=== PATIENT | female | born 1985 | race Caucasian/White ===

== ENCOUNTER 2022-06-19 09:04 | Day surgery (SDC) | payer OTHER, SELFPAY ==
[2022-06-16 11:36] VITALS: BMI 28.8
--- NOTE | 2022-06-19 08:17 | W.PM.OPSFHP ---
Same Day Surgery H&P Indication for Procedure/HPI DATE OF PROCEDURE: June 19, 2022 CHIEF COMPLAINT/INDICATIONFOR SURGICAL PROCEDURE: POst prandial pain and bloating PREOP DIAGNOSIS: Post prandial pain and bloating PLANNED PROCEDURE: Operation Date: 06/19/22 10:30 Proposed Procedures p Colonoscopy 92296,R14.0(Not Applicable) - Esteban Dimas MD Medications/Allergies* Home Medications Medication Instructions Recorded Confirmed Type No Known Home Medications 06/13/22 06/16/22 History Allergies/Adverse Reactions Allergy/AdvReac Type Severity Reaction Status Date / Time cephalexin [From Keflex] Allergy Unknown Verified 06/16/22 11:34 grass pollen Allergy Unknown Verified 06/15/22 13:40 meperidine Allergy Unknown Verified 06/15/22 13:40 Pertinent History/Comorbid Conditions* Family History (Updated 06/13/22 @ 10:46 by Natalie Best LPN) Father Diabetes Father Mental disability Father Cancer Mother Social History Smoking and tobacco status: current every day smoker Second hand smoke exposure: Yes Smoking risk assessment/counseling performed?: No Alcohol intake: never Desire information about alcohol rehabilitation?: No Counseling given: No Desire information about substance/drug rehabilitation?: No Counseling given: No Adopted: No Caregiver/support person: No Lives independently: Yes Household members: spouse Housing: House Marital status: Pertinent Exam Findings alert, oriented x 3, clear to auscultation bilaterally, regular rate & rhythm, operative site marked and procedure specific exam findings Recommendations Surgery/Procedure today Coding Level of Care Code Acute Occupational Health Specialist for Ben Quach
[2022-06-19 09:39] VITALS: BP 117/107; PULSE 90; RESP 18; TEMP 36.6; O2SAT 99
--- NOTE | 2022-06-19 09:44 | ANES.PREANE2 ---
Pre-Anesthetic Assessment Height/Weight: Height 1.65 m Weight 78.471 kg Preop Diagnosis: rectal pain. Post prandial abdominal pain. Operation Date: 06/19/22 10:30 Proposed Procedures p Colonoscopy 77827,R14.0(Not Applicable) - Esteban Dimas MD Familial anesthetic complications: NOne Was Beta Alia taken within 24 hours: N/A Was Clonidine taken within 24 hours: N/A Last intake: > 8 hrs Social No alcohol and No tobacco Exam alert, oriented x 3, clear to auscultation bilaterally and regular rate & rhythm Airway Mallampati: Class II Dentition: chipped Pulmonary None reported CV/HEM None reported None reported Hepatic None reported GI None reported Metabolic None reported Musc/skel None reported Neuropsych None reported Anesthetic Plan ASA status: 1 Anesthesia: MAC Risk of > 500 ml blood loss (7ml/kg in children): No Medications/Allergies Home Medications Medication Instructions Recorded Confirmed Last Taken Type No Known Home Medications 06/13/22 06/16/22 Unknown History Allergies Allergy/AdvReac Type Severity Reaction Status Date / Time cephalexin [From Keflex] Allergy Unknown Verified 06/16/22 11:34 grass pollen Allergy Unknown Verified 06/15/22 13:40 meperidine Allergy Unknown Verified 06/15/22 13:40 [facility] Anesthesia Family History Father Diabetes Mental disability Mother Cancer Social History Smoking and tobacco status: current every day smoker Second hand smoke exposure: Yes Smoking risk assessment/counseling performed?: No Alcohol intake: never Desire information about alcohol rehabilitation?: No Counseling given: No Desire information about substance/drug rehabilitation?: No Counseling given: No Adopted: No Caregiver/support person: No Lives independently: Yes Household members: spouse Housing: House Marital status: Data Anesthesia Cardiac Studies: No Data to Display
[2022-06-19] MEDS: sodium chloride 0.9% 1,000 ML 30 ML IV (09:48)
[2022-06-19 11:04] VITALS: BP 105/72; PULSE 77; RESP 16; TEMP 36.1; O2SAT 98
[2022-06-19 11:21] VITALS: BP 101/64; PULSE 73; RESP 18; O2SAT 100
--- NOTE | 2022-06-19 13:14 | ANE.PACU2 ---
Inpatient post-anesthesia follow up: Airway intact: Yes Vital signs: Temperature 97.0 F Pulse Rate 73 Respiratory Rate 18 Blood Pressure 101/64 Pulse Oximetry 100 Oxygen Delivery Me thod Room Air Oxygen Flow Rate Fraction of Inspir ed Oxygen Hydration adequate: Yes Nausea and vomiting: No Pain level: 1 Mental status: Baseline
[2022-06-20 13:48] LABS: H. Pylori / CLO Test Negative
== END 2022-06-19 11:35 | disposition home or self-care (01) ==
PROVIDERS: PCP Nurse Practitioner Family; Visit Provider Internal Medicine
PROC: 0DJD8ZZ Inspection of Lower Intestinal Tract, Via Natural or Artificial Opening Endoscopic (ICD-10-PCS; CPT 45378; principal; 2022-06-19 10:00)
PROC: 0DJ08ZZ Inspection of Upper Intestinal Tract, Via Natural or Artificial Opening Endoscopic (ICD-10-PCS; CPT 43235; 2022-06-19 10:00)
DX: R14.0 Abdominal distension (gaseous) (principal); K62.89 Other specified diseases of anus and rectum; K62.5 Hemorrhage of anus and rectum; K64.8 Other hemorrhoids; K63.5 Polyp of colon; K29.70 Gastritis, unspecified, without bleeding; F17.210 Nicotine dependence, cigarettes, uncomplicated
CPT/HCPCS: 43239; 45385; 87077; 88305; J2704; J7030